=== PATIENT | male | born 1950 | race Caucasian/White ===

== ENCOUNTER → 2017-02-14 | Outpatient (CLI) | payer OTHER | LOC: M SMT 09:14 | PROVIDERS: ATTEND Nurse Practitioner Women's Health | DX: N40.1 Benign prostatic hyperplasia with lower urinary tract symptoms (principal) ==

== ENCOUNTER → 2018-09-16 | Outpatient (REF) | payer OTHER ==
[2018-09-16 12:37] LABS: BASO # 0.1 10^3/uL (0.0-0.2); BASO % 0.8 % (0.0-1.0); EOS # 0.5 10^3/uL (0.0-0.50); EOS % 4.6 % (0.0-3.0); HEMATOCRIT 38.1 % (42.0-52.0); HEMOGLOBIN 12.7 g/dl (13.5-17.5); LYMPH # 3.8 10^3/uL (1.5-4.5); LYMPH % 37.2 % (24.0-44.0); MEAN CORPUSCULAR HEMOGLOBIN 28.8 pg (27.0-33.0); MEAN CORPUSCULAR HGB CONC 33.3 g/dl (32.0-36.5); MEAN CORPUSCULAR VOLUME 86.4 fl (80.0-96.0); MONO # 0.8 10^3/uL (0.0-0.8); MONO % 7.9 % (0.0-5.0); NEUTROPHILS % 49.2 % (36.0-66.0); PLATELET COUNT, AUTOMATED 304 10^3/uL (150-450); RED BLOOD COUNT 4.41 10^6/uL (4.30-6.10); WHITE BLOOD COUNT 10.2 10^3/uL (4.0-10.0)
[2018-09-16 13:40] LABS: ALBUMIN 4.3 GM/DL (3.2-5.2); BILIRUBIN,TOTAL 0.7 MG/DL (0.2-1.0); CALCIUM LEVEL 9.1 MG/DL (8.8-10.2); CHOLESTEROL RISK RATIO 6.384 (<5); CREATININE FOR GFR 1.43 MG/DL (0.70-1.30); FREE T4 0.94 NG/DL (0.76-1.46); GLOMERULAR FILTRATION RATE 52.2 (>49); POTASSIUM SERUM 4.6 MEQ/L (3.5-5.1); THYROID STIMULATING HORMONE 3.03 uIU/ML (0.358-3.740); TOTAL 25(OH) VITAMIN D 27.8 NG/ML (30.0-100.0); TOTAL PROTEIN 7.3 GM/DL (6.4-8.2)
[2018-09-16 13:42] LABS: HEMOGLOBIN A1c 7.4 %
== END ==
LOC: M SFHCADAM 10:21
PROVIDERS: ATTEND Physician Assistant Medical
DX: E11.9 Type 2 diabetes mellitus without complications (principal); E66.01 Morbid (severe) obesity due to excess calories; I10 Essential (primary) hypertension

== ENCOUNTER → 2018-10-14 | Outpatient (REF) | payer OTHER ==
[2018-10-14 12:34] LABS: HEMATOCRIT 39.8 % (42.0-52.0); HEMOGLOBIN 13.5 g/dl (13.5-17.5); MEAN CORPUSCULAR HEMOGLOBIN 28.9 pg (27.0-33.0); MEAN CORPUSCULAR HGB CONC 33.9 g/dl (32.0-36.5); MEAN CORPUSCULAR VOLUME 85.2 fl (80.0-96.0); PLATELET COUNT, AUTOMATED 327 10^3/uL (150-450); RED BLOOD COUNT 4.67 10^6/uL (4.30-6.10); WHITE BLOOD COUNT 10.7 10^3/uL (4.0-10.0)
[2018-10-14 12:45] LABS: FERRITIN 126 NG/ML (26-388); IRON (FE) 85 UG/DL (65-175); PERCENT SATURATION 26.2 % (19.7-50.0); TOTAL IRON BINDING CAPACITY 325 UG/DL (250-450)
[2018-10-14 12:50] LABS: VITAMIN B12 LEVEL 446 PG/ML
[2018-10-14 12:51] LABS: FOLATE > 24.0 NG/ML
== END ==
LOC: M SFHCADAM 08:18
PROVIDERS: ATTEND Physician Assistant Medical
DX: D64.9 Anemia, unspecified (principal)

== ENCOUNTER → 2018-11-04 | Outpatient (REF) | payer OTHER ==
[2018-11-04 13:10] LABS: CALCIUM LEVEL 8.8 MG/DL (8.8-10.2); CREATININE FOR GFR 1.4 MG/DL (0.70-1.30); GLOMERULAR FILTRATION RATE 53.5 (>49); POTASSIUM SERUM 4.4 MEQ/L (3.5-5.1)
== END ==
LOC: M SFHCADAM 09:00
PROVIDERS: ATTEND Physician Assistant Medical
DX: R60.1 Generalized edema (principal)

== ENCOUNTER → 2018-12-23 | Outpatient (CLI) | payer OTHER ==
--- NOTE | 2018-12-23 12:35 | REP ---
One ultrasound for epididymal cyst and varicocele: There are no comparisons. The right testis is normal size measuring 5.4 x 2.4-0.6 cm. The left testis is normal size measuring 5.4 x 2.1 x 3.4 cm. There are no solid testicular masses. There is a left testicular cyst in the mediastinum testis measuring 4 x 4 x 2 mm. There is a left epididymal head cyst measuring 6 x 6 mm. The right epididymal head measures 11 mm and the left epididymal head measures 14 mm. There is vascular flow in both testes. The Doppler resistive index of the parenchymal arteries on the right is 0.58 and left 0.68. There are prominent veins inferiorly in the left jackie scrotum measuring up to 4 mm in transverse diameter. However, there is no significant diameter increase with Valsalva. Impression: There is a 6 x 6 mm left epididymal head cyst. There is a 4 x 2 x 4 mm right testicular cyst near the mediastinum testis. There are prominent the veins inferiorly in the left jackie scrotum measuring up to 4 mm in diameter compatible with varicocele, however, they are not significantly increased in diameter with Valsalva. Electronically Signed by Silverio Pope MD 12/23/2018 12:26 P
== END ==
LOC: M RAD 11:22
PROVIDERS: ATTEND Nurse Practitioner Women's Health
DX: N50.3 Cyst of epididymis (principal); N44.2 Benign cyst of testis

== ENCOUNTER → 2018-12-23 | Outpatient (CLI) | payer OTHER ==
[2018-12-25 14:24] LABS: PSA % FREE 21.8 % (.); PSA FREE 0.87 ng/mL
== END ==
LOC: M SMT 12:05
PROVIDERS: ATTEND Urology
DX: R97.20 Elevated prostate specific antigen [PSA] (principal); I86.1 Scrotal varices

== ENCOUNTER → 2019-04-08 | Outpatient (CLI) | payer OTHER ==
[2019-04-08 13:28] LABS: BASO # 0.1 10^3/uL (0.0-0.2); BASO % 0.9 % (0.0-1.0); EOS # 0.4 10^3/uL (0.0-0.5); EOS % 3.8 % (0.0-3.0); HEMATOCRIT 39.5 % (42.0-52.0); HEMOGLOBIN 13.3 g/dl (13.5-17.5); LYMPH # 3.7 10^3/uL (1.5-5.0); LYMPH % 34.9 % (24.0-44.0); MEAN CORPUSCULAR HEMOGLOBIN 29.6 pg (27.0-33.0); MEAN CORPUSCULAR HGB CONC 33.7 g/dl (32.0-36.5); MONO # 0.8 10^3/uL (0.0-0.8); MONO % 7.3 % (0.0-5.0); NEUTROPHILS # 5.6 10^3/uL (1.5-8.5); NEUTROPHILS % 52.8 % (36.0-66.0); PLATELET COUNT, AUTOMATED 333 10^3/uL (150-450); RED BLOOD COUNT 4.49 10^6/uL (4.30-6.10); WHITE BLOOD COUNT 10.6 10^3/uL (4.0-10.0)
[2019-04-08 13:59] LABS: ALBUMIN 3.9 GM/DL (3.2-5.2); BILIRUBIN,TOTAL 0.6 MG/DL (0.2-1.0); CALCIUM LEVEL 9.6 MG/DL (8.8-10.2); CHOLESTEROL RISK RATIO 4.058 (<5); CREATININE FOR GFR 1.39 MG/DL (0.70-1.30); GLOMERULAR FILTRATION RATE 53.9 (>49); POTASSIUM SERUM 4.2 MEQ/L (3.5-5.1); TOTAL PROTEIN 7.1 GM/DL (6.4-8.2)
[2019-04-08 14:14] LABS: HEMOGLOBIN A1c 6.8 %
[2019-04-08 14:22] LABS: CREATININE, URINE 60.5 MG/DL; MAU/CREAT RATIO 543.8 MCG/MG (0.0-30.0)
== END ==
LOC: M SMT 09:18
PROVIDERS: ATTEND Physician Assistant Medical
DX: E66.01 Morbid (severe) obesity due to excess calories (principal); I10 Essential (primary) hypertension; E11.9 Type 2 diabetes mellitus without complications

== ENCOUNTER → 2019-10-12 | Outpatient (REF) | payer OTHER ==
[2019-10-12 13:09] LABS: BASO # 0.1 10^3/uL (0.0-0.2); BASO % 0.6 % (0.0-1.0); EOS # 0.3 10^3/uL (0.0-0.5); EOS % 2.5 % (0.0-3.0); HEMATOCRIT 38.9 % (42.0-52.0); LYMPH # 4.3 10^3/uL (1.5-5.0); LYMPH % 34.1 % (24.0-44.0); MEAN CORPUSCULAR HEMOGLOBIN 28.8 pg (27.0-33.0); MEAN CORPUSCULAR HGB CONC 33.4 g/dl (32.0-36.5); MEAN CORPUSCULAR VOLUME 86.3 fl (80.0-96.0); MONO % 8.1 % (0.0-5.0); NEUTROPHILS # 6.9 10^3/uL (1.5-8.5); NEUTROPHILS % 54.2 % (36.0-66.0); PLATELET COUNT, AUTOMATED 331 10^3/uL (150-450); RED BLOOD COUNT 4.51 10^6/uL (4.30-6.10); WHITE BLOOD COUNT 12.7 10^3/uL (4.0-10.0)
[2019-10-12 13:25] LABS: HEMOGLOBIN A1c 7.8 %
[2019-10-12 13:31] LABS: BILIRUBIN,TOTAL 0.6 MG/DL (0.2-1.0); CALCIUM LEVEL 9.5 MG/DL (8.8-10.2); CHOLESTEROL RISK RATIO 4.428 (<5); CREATININE FOR GFR 1.55 MG/DL (0.70-1.30); GLOMERULAR FILTRATION RATE 47.4 (>42); POTASSIUM SERUM 4.2 MEQ/L (3.5-5.1); TOTAL PROTEIN 7.4 GM/DL (6.4-8.2)
[2019-10-12 13:32] LABS: MAU/CREAT RATIO 255.1 MCG/MG (0.0-30.0)
== END ==
LOC: M SFHCADAM 09:00
PROVIDERS: ATTEND Physician Assistant Medical
DX: R80.9 Proteinuria, unspecified (principal); I10 Essential (primary) hypertension; I87.2 Venous insufficiency (chronic) (peripheral); E78.1 Pure hyperglyceridemia; E78.6 Lipoprotein deficiency

== ENCOUNTER → 2019-12-14 | Outpatient (CLI) | payer OTHER ==
--- NOTE | 2019-12-14 15:05 | REP ---
Clinical: Chronic medical renal disease. Technique: Real time mcmanus scale and color evaluation using curved array transducer. Findings: The bilateral kidneys are normal in contour, size, and reniform shape without hydronephrosis, nephrolithiasis or obvious cystic abnormality. No perinephric fluid collection. Right kidney measures 11.9 x 6.7 x 5.7 cm and there is suggestion for a mid pole mass versus prominent column of Riki measuring 2.9 x 2.0 x 2.8 cm. Left kidney measures 12.1 x 7.7 x 6.1 cm and there is suggestion for a mid pole mass versus prominent column of Riki measuring 3.6 x 2.4 x 2.6 cm. The bladder is unremarkable and bilateral ureteral jets are identified. The prostate gland is enlarged and heterogeneous measuring 5.3 x 6.3 x 6.2 cm. Impression: 1. Kidneys most suggesting bilateral column of Riki and less likely mid pole mass lesions. No hydronephrosis. 2. Prostatomegaly. Electronically Signed by Michael Mak MD 12/14/2019 02:56 P
== END ==
LOC: M RAD 14:15
PROVIDERS: ATTEND Physician Assistant Medical
DX: N18.3 Chronic kidney disease, stage 3 (moderate) (principal); R80.9 Proteinuria, unspecified; N40.0 Benign prostatic hyperplasia without lower urinary tract symptoms

== ENCOUNTER → 2019-12-28 | Outpatient (CLI) | payer OTHER | LOC: M PLALAB 10:31 | PROVIDERS: ATTEND Nurse Practitioner Women's Health | DX: R97.20 Elevated prostate specific antigen [PSA] (principal) ==

== ENCOUNTER → 2020-02-01 | Outpatient (REF) | payer OTHER ==
[~2020-02-01] MED LIST: AMLO1TAB24; BREO1INH; CIDA500T2 PO; D31000TA2 PO; ECOT81TA5 PO; FINA5TAB2; FLAX1CAP5 PO; FURO40TA2; GLIM2TAB29; KP F1200 PO; METO1TAB7; MULTCAP PO; OLME1TAB47; ROSU5TAB5; SITA50TAB; TAMS1CAP17; VENTAER
[2020-03-20 17:02] LABS: HEMOGLOBIN A1c 7.2 %
== END ==
LOC: M LAB REF 17:32
PROVIDERS: ATTEND Internal Medicine Nephrology
DX: E11.22 Type 2 diabetes mellitus with diabetic chronic kidney disease (principal); N18.3 Chronic kidney disease, stage 3 (moderate)

== ENCOUNTER → 2020-02-28 | Outpatient (CLI) | payer OTHER | LOC: M LABSMTC 08:27 | PROVIDERS: ATTEND Anesthesiology | DX: Z01.812 Encounter for preprocedural laboratory examination (principal); Z20.828 Contact with and (suspected) exposure to other viral communicable diseases ==

== ENCOUNTER 2020-03-04 06:48 | Day surgery (SDC) | payer OTHER ==
[~2020-03-04] VITALS: Ht 170.2 cm; Wt 99.3 kg
[2020-03-04] MEDS ORDERED: NS 1,000 ML IV ONE (07:00)
[2020-03-04] MEDS ORDERED: propofoL 200 MG/20 ML VIAL As Ordered ONE ×2 (07:19→08:23)
[2020-03-04] MEDS ORDERED: LIDOCAINE 2% 100MG/5ML SDV (FOR ANES.) As Ordered ONE (07:19)
[2020-03-04] MEDS ORDERED: METOPROLOL 5 MG/5 ML VIAL As Ordered ONE (08:13)
[2020-03-04 09:04] VITALS: BP 191/88
--- NOTE | 2020-03-09 11:37 | ROOR ---
Patient Name: Javier Fraser Procedure Date: 03/04/2020 8:10 AM Date of : 1950 Age: 69 Room: [facility] Gender: Male Note Status: Finalized Procedure: Colonoscopy Indications: High risk colon cancer surveillance: Personal history of colonic polyps, Last colonoscopy: August 2014 Providers: Javier NIETO MD Referring MD: ADEN Magaña Requesting Provider: Medicines: Monitored Anesthesia Care Complications: No immediate complications. Procedure: Pre-Anesthesia Assessment: - The heart rate, respiratory rate, oxygen saturations, blood pressure, adequacy of pulmonary ventilation, and response to care were monitored throughout the procedure. The Colonoscope was introduced through the anus and advanced to the cecum, identified by appendiceal orifice and ileocecal valve. The colonoscopy was performed without difficulty. The patient tolerated the procedure well. The quality of the bowel preparation was good. Findings: The perianal and digital rectal examinations were normal. Three sessile polyps were found in the sigmoid colon. The polyps were 3 to 8 mm in size. These polyps were removed with a cold snare. Resection and retrieval were complete. To prevent bleeding after the polypectomy, two hemostatic clips were successfully placed. Mild sigmoid diverticulosis and small internal hemorrhoids. The exam was otherwise without abnormality on direct and retroflexion views. Impression: - Three 3 to 8 mm polyps in the sigmoid colon, removed with a cold snare. Resected and retrieved. Clips were placed. - Mild sigmoid diverticulosis and small internal hemorrhoids. - The examination was otherwise normal on direct and retroflexion views. Recommendation: - Repeat colonoscopy in 5 years for surveillance. Javier Nieto MD Javier NIETO MD 03/04/2020 8:38:42 AM Electronically signed by Javier NIETO MD Number of Addenda: 0 Note Initiated On: 03/04/2020 8:10 AM Estimated Blood Loss: Estimated blood loss: none.
== END 2020-03-04 09:10 | disposition home or self-care (01) ==
LOC: M OPP 06:48
PROVIDERS: ATTEND Internal Medicine Gastroenterology
DX: Z12.11 Encounter for screening for malignant neoplasm of colon (principal); Z86.010 Personal history of colon polyps; D12.5 Benign neoplasm of sigmoid colon; K57.30 Diverticulosis of large intestine without perforation or abscess without bleeding; K64.8 Other hemorrhoids; E11.9 Type 2 diabetes mellitus without complications; I10 Essential (primary) hypertension; Z79.82 Long term (current) use of aspirin; Z79.84 Long term (current) use of oral hypoglycemic drugs; Z79.899 Other long term (current) drug therapy; Z88.8 Allergy status to other drugs, medicaments and biological substances

== ENCOUNTER → 2020-03-31 | Outpatient (REF) | payer OTHER ==
[2020-03-31 13:08] LABS: BASO # 0.1 10^3/uL (0.0-0.2); BASO % 0.8 % (0.0-1.0); EOS # 0.3 10^3/uL (0.0-0.5); EOS % 3.2 % (0.0-3.0); HEMATOCRIT 36.7 % (42.0-52.0); HEMOGLOBIN 12.4 g/dl (13.5-17.5); LYMPH # 3.7 10^3/uL (1.5-5.0); LYMPH % 35.7 % (24.0-44.0); MEAN CORPUSCULAR HEMOGLOBIN 29.3 pg (27.0-33.0); MEAN CORPUSCULAR HGB CONC 33.8 g/dl (32.0-36.5); MEAN CORPUSCULAR VOLUME 86.8 fl (80.0-96.0); MONO # 0.7 10^3/uL (0.0-0.8); MONO % 7.1 % (0.0-5.0); NEUTROPHILS # 5.5 10^3/uL (1.5-8.5); NEUTROPHILS % 52.9 % (36.0-66.0); PLATELET COUNT, AUTOMATED 314 10^3/uL (150-450); RED BLOOD COUNT 4.23 10^6/uL (4.30-6.10); WHITE BLOOD COUNT 10.3 10^3/uL (4.0-10.0)
[2020-03-31 13:25] LABS: HEMOGLOBIN A1c 7.1 %
[2020-03-31 13:50] LABS: ALBUMIN 3.8 GM/DL (3.2-5.2); BILIRUBIN,TOTAL 0.6 MG/DL (0.2-1.0); CALCIUM LEVEL 9.4 MG/DL (8.8-10.2); CHOLESTEROL RISK RATIO 4.531 (<5); CREATININE FOR GFR 1.56 MG/DL (0.70-1.30); GLOMERULAR FILTRATION RATE 47.1 (>42); THYROID STIMULATING HORMONE 3.29 uIU/ML (0.358-3.740); TOTAL PROTEIN 7.2 GM/DL (6.4-8.2)
== END ==
LOC: M SFHCADAM 11:01
PROVIDERS: ATTEND Physician Assistant Medical
DX: E11.9 Type 2 diabetes mellitus without complications (principal); E66.01 Morbid (severe) obesity due to excess calories; I12.9 Hypertensive chronic kidney disease with stage 1 through stage 4 chronic kidney disease, or unspecified chronic kidney disease; E78.1 Pure hyperglyceridemia; N18.30 Chronic kidney disease, stage 3 unspecified

== ENCOUNTER → 2020-06-01 | Outpatient (CLI) | payer OTHER ==
[~2020-06-01] MED LIST changes: -OLME1TAB47; +OLME1TAB53
--- NOTE | 2020-06-01 09:03 | REP ---
INDICATION: NEOPLASM OF LEFT KIDNEY. COMPARISON: Comparison sonography December 14, 2019.. TECHNIQUE: Urinary tract sonography. FINDINGS: Moderate prostate enlargement is noted at scanning images at the bladder base. Prostate dimensions by transabdominal scanning are 6.5 x 6.5 x 7.1 cm. This correlates with the calculated glandular volume of 157 mL. Bladder pacheco are smooth.. Renal cortical echogenicity pattern is normal bilaterally and contours are smooth. There is no evidence of hydronephrosis, cyst, mass, or calculus in either kidney. The right kidney measures 11.9 x 6.9 x 5.3 cm. Left renal dimensions are 12.9 x 5.8 x 5.8 cm. There is a dromedary hump configuration of the left kidney unchanged from prior study. IMPRESSION: Enlarged prostate, otherwise negative urinary tract sonography.. Dromedary hump visible left kidney unchanged. No mass or cyst is felt to be present. <Electronically signed by Jonnie Dangelo > 06/01/20 [id number]
== END ==
LOC: M RAD 08:14
PROVIDERS: ATTEND Internal Medicine Nephrology
DX: D41.02 Neoplasm of uncertain behavior of left kidney (principal); N40.0 Benign prostatic hyperplasia without lower urinary tract symptoms

== ENCOUNTER → 2020-10-17 | Outpatient (CLI) | payer OTHER ==
[2020-10-17 11:03] LABS: BASO # 0.1 10^3/uL (0.0-0.2); BASO % 0.9 % (0.0-1.0); EOS # 0.5 10^3/uL (0.0-0.5); EOS % 3.9 % (0.0-3.0); HEMATOCRIT 42.2 % (42.0-52.0); HEMOGLOBIN 14.2 g/dl (13.5-17.5); LYMPH # 3.7 10^3/uL (1.5-5.0); LYMPH % 31.4 % (24.0-44.0); MEAN CORPUSCULAR HEMOGLOBIN 28.6 pg (27.0-33.0); MEAN CORPUSCULAR HGB CONC 33.6 g/dl (32.0-36.5); MEAN CORPUSCULAR VOLUME 85.1 fl (80.0-96.0); MONO # 0.7 10^3/uL (0.0-0.8); MONO % 6.4 % (2.0-8.0); NEUTROPHILS # 6.6 10^3/uL (1.5-8.5); NEUTROPHILS % 56.9 % (36.0-66.0); PLATELET COUNT, AUTOMATED 301 10^3/uL (150-450); RED BLOOD COUNT 4.96 10^6/uL (4.30-6.10); WHITE BLOOD COUNT 11.6 10^3/uL (4.0-10.0)
[2020-10-17 11:38] LABS: ALBUMIN 3.9 GM/DL (3.2-5.2); BILIRUBIN,TOTAL 0.6 MG/DL (0.2-1.0); CHOLESTEROL RISK RATIO 4.545 (<5); CREATININE FOR GFR 1.97 MG/DL (0.70-1.30); GLOMERULAR FILTRATION RATE 35.9 (>42); POTASSIUM SERUM 4.8 MEQ/L (3.5-5.1); THYROID STIMULATING HORMONE 2.24 uIU/ML (0.358-3.740); TOTAL PROTEIN 7.6 GM/DL (6.4-8.2)
[2020-10-17 14:01] LABS: CREATININE, URINE 28.3 MG/DL; MAU/CREAT RATIO 826.8 MCG/MG (0.0-30.0)
[2020-10-17 15:48] LABS: HEMOGLOBIN A1c 9.5 %
== END ==
LOC: M LAB 09:51
PROVIDERS: ATTEND Physician Assistant Medical
DX: E11.9 Type 2 diabetes mellitus without complications (principal)

== ENCOUNTER → 2021-01-05 | Outpatient (REF) | payer OTHER | LOC: M SFHCADAM 08:51 | PROVIDERS: ATTEND Nurse Practitioner Women's Health | DX: R97.20 Elevated prostate specific antigen [PSA] (principal) ==

== ENCOUNTER → 2021-04-03 | Outpatient (REF) | payer OTHER ==
[2021-04-03 13:30] LABS: BASO # 0.1 10^3/uL (0.0-0.2); BASO % 0.8 % (0.0-1.0); EOS # 0.3 10^3/uL (0.0-0.5); EOS % 2.6 % (0.0-3.0); HEMOGLOBIN 15.6 g/dl (13.5-17.5); LYMPH # 4.1 10^3/uL (1.5-5.0); LYMPH % 33.1 % (24.0-44.0); MEAN CORPUSCULAR HEMOGLOBIN 29.2 pg (27.0-33.0); MEAN CORPUSCULAR HGB CONC 33.2 g/dl (32.0-36.5); MONO # 0.8 10^3/uL (0.0-0.8); MONO % 6.3 % (2.0-8.0); NEUTROPHILS # 7.1 10^3/uL (1.5-8.5); NEUTROPHILS % 56.8 % (36.0-66.0); PLATELET COUNT, AUTOMATED 327 10^3/uL (150-450); RED BLOOD COUNT 5.34 10^6/uL (4.30-6.10); WHITE BLOOD COUNT 12.5 10^3/uL (4.0-10.0)
[2021-04-03 13:52] LABS: ALBUMIN 3.8 GM/DL (3.2-5.2); BILIRUBIN,TOTAL 0.6 MG/DL (0.2-1.0); CALCIUM LEVEL 9.6 MG/DL (8.8-10.2); CHOLESTEROL RISK RATIO 5.285 (<5); CREATININE FOR GFR 2.05 MG/DL (0.70-1.30); GLOMERULAR FILTRATION RATE 34.2 (>42); POTASSIUM SERUM 4.8 MEQ/L (3.5-5.1); TOTAL PROTEIN 7.4 GM/DL (6.4-8.2)
[2021-04-03 14:07] LABS: HEMOGLOBIN A1c 6.9 %
== END ==
LOC: M SFHCADAM 08:01
PROVIDERS: ATTEND Physician Assistant Medical
DX: E11.22 Type 2 diabetes mellitus with diabetic chronic kidney disease (principal); E66.01 Morbid (severe) obesity due to excess calories; I12.9 Hypertensive chronic kidney disease with stage 1 through stage 4 chronic kidney disease, or unspecified chronic kidney disease; K75.81 Nonalcoholic steatohepatitis (NASH); I87.2 Venous insufficiency (chronic) (peripheral); G47.33 Obstructive sleep apnea (adult) (pediatric); N18.31 Chronic kidney disease, stage 3a; E11.8 Type 2 diabetes mellitus with unspecified complications

== ENCOUNTER → 2021-09-28 | Outpatient (REF) | payer OTHER ==
[~2021-09-28] MED LIST changes: -D31000TA2 PO; +VITA100093 PO
[2021-09-28 14:27] LABS: BASO # 0.1 10^3/uL (0.0-0.2); BASO % 0.8 % (0.0-1.0); EOS # 0.3 10^3/uL (0.0-0.5); EOS % 2.6 % (0.0-3.0); HEMATOCRIT 43.7 % (42.0-52.0); HEMOGLOBIN 15.1 g/dl (13.5-17.5); LYMPH # 4.5 10^3/uL (1.5-5.0); LYMPH % 39.3 % (24.0-44.0); MEAN CORPUSCULAR HEMOGLOBIN 30.4 pg (27.0-33.0); MEAN CORPUSCULAR HGB CONC 34.6 g/dl (32.0-36.5); MEAN CORPUSCULAR VOLUME 88.1 fl (80.0-96.0); MONO # 0.8 10^3/uL (0.0-0.8); MONO % 6.9 % (2.0-8.0); NEUTROPHILS # 5.8 10^3/uL (1.5-8.5); PLATELET COUNT, AUTOMATED 344 10^3/uL (150-450); RED BLOOD COUNT 4.96 10^6/uL (4.30-6.10); WHITE BLOOD COUNT 11.5 10^3/uL (4.0-10.0)
[2021-09-28 16:23] LABS: BILIRUBIN,TOTAL 0.6 MG/DL (0.2-1.0); CALCIUM LEVEL 9.6 MG/DL (8.8-10.2); CHOLESTEROL RISK RATIO 5.178 (<5); CREATININE FOR GFR 2.07 MG/DL (0.70-1.30); GLOMERULAR FILTRATION RATE 33.8 (>42); THYROID STIMULATING HORMONE 2.46 uIU/ML (0.358-3.740); TOTAL PROTEIN 7.5 GM/DL (6.4-8.2)
[2021-09-28 16:43] LABS: CREATININE, URINE 90.2 MG/DL; MAU/CREAT RATIO 200.6 MCG/MG (0.0-30.0)
[2021-09-28 17:38] LABS: HEMOGLOBIN A1c 8.3 %
== END ==
LOC: M SFHCPLAZ 08:22
PROVIDERS: ATTEND Physician Assistant Medical
DX: E11.8 Type 2 diabetes mellitus with unspecified complications (principal); E66.01 Morbid (severe) obesity due to excess calories; R80.9 Proteinuria, unspecified; E78.1 Pure hyperglyceridemia

== ENCOUNTER → 2022-01-29 | Outpatient (REF) | payer OTHER | LOC: M SFHCADAM 11:17 | PROVIDERS: ATTEND Nurse Practitioner Women's Health | DX: R97.20 Elevated prostate specific antigen [PSA] (principal) ==

== ENCOUNTER → 2022-05-01 | Outpatient (REF) | payer OTHER ==
[2022-05-01 14:06] LABS: CREATININE FOR GFR 1.92 MG/DL (0.70-1.30); GLOMERULAR FILTRATION RATE 36.8 (>42); POTASSIUM SERUM 5.4 MEQ/L (3.5-5.1)
[2022-05-01 14:07] LABS: ALBUMIN 3.9 GM/DL (3.2-5.2); BILIRUBIN,TOTAL 0.5 MG/DL (0.2-1.0); CALCIUM LEVEL 9.9 MG/DL (8.8-10.2); CHOLESTEROL RISK RATIO 5.433 (<5); THYROID STIMULATING HORMONE 2.99 uIU/ML (0.358-3.740); TOTAL PROTEIN 7.4 GM/DL (6.4-8.2)
[2022-05-01 14:14] LABS: HEMOGLOBIN A1c 8.9 %
== END ==
LOC: M SFHCADAM 08:03
PROVIDERS: ATTEND Physician Assistant Medical
DX: E11.8 Type 2 diabetes mellitus with unspecified complications (principal); E78.1 Pure hyperglyceridemia

== ENCOUNTER → 2022-10-30 | Outpatient (REF) | payer OTHER ==
[2022-10-30 13:01] LABS: BASO # 0.1 10^3/uL (0.0-0.2); BASO % 0.9 % (0.0-1.0); EOS # 0.3 10^3/uL (0.0-0.5); EOS % 2.5 % (0.0-3.0); HEMATOCRIT 43.2 % (42.0-52.0); HEMOGLOBIN 14.5 g/dl (13.5-17.5); LYMPH # 3.8 10^3/uL (1.5-5.0); LYMPH % 31.5 % (24.0-44.0); MEAN CORPUSCULAR HGB CONC 33.6 g/dl (32.0-36.5); MEAN CORPUSCULAR VOLUME 89.4 fl (80.0-96.0); MONO # 0.8 10^3/uL (0.0-0.8); MONO % 6.3 % (2.0-8.0); NEUTROPHILS % 58.5 % (36.0-66.0); PLATELET COUNT, AUTOMATED 308 10^3/uL (150-450); RED BLOOD COUNT 4.83 10^6/uL (4.30-6.10)
[2022-10-30 13:03] LABS: BILIRUBIN,TOTAL 0.6 MG/DL (0.3-1.2); CALCIUM LEVEL 9.8 MG/DL (8.3-10.6); CHOLESTEROL RISK RATIO 4.66 (<5); CREATININE FOR GFR 1.56 MG/DL (0.70-1.30); GLOMERULAR FILTRATION RATE 46.7 (>42); LDL CHOLESTEROL 60.4 MG/DL (<100); TOTAL PROTEIN 7.4 G/DL (5.7-8.2)
[2022-10-30 13:04] LABS: THYROID STIMULATING HORMONE 2.964 uIU/ML (0.55-4.78); TOTAL 25(OH) VITAMIN D 43.5 NG/ML (20.0-100.0)
== END ==
LOC: M SFHCADAM 09:01
PROVIDERS: ATTEND Physician Assistant Medical
DX: E11.22 Type 2 diabetes mellitus with diabetic chronic kidney disease (principal); E11.65 Type 2 diabetes mellitus with hyperglycemia

== ENCOUNTER → 2022-11-07 | Outpatient (REF) | payer OTHER | LOC: M SFHCADAM 10:21 | PROVIDERS: ATTEND Physician Assistant Medical | DX: E11.22 Type 2 diabetes mellitus with diabetic chronic kidney disease (principal); E11.65 Type 2 diabetes mellitus with hyperglycemia; E66.01 Morbid (severe) obesity due to excess calories; I10 Essential (primary) hypertension; E78.1 Pure hyperglyceridemia ==

== ENCOUNTER → 2023-01-28 | Outpatient (REF) | payer OTHER | LOC: M SMT 15:48 | PROVIDERS: ATTEND Nurse Practitioner Women's Health | DX: R97.20 Elevated prostate specific antigen [PSA] (principal) ==

== ENCOUNTER → 2023-05-06 | Outpatient (REF) | payer OTHER ==
[2023-05-06 13:46] LABS: HEMOGLOBIN A1c 8.4 % (4.0-6.0)
[2023-05-06 13:47] LABS: CHOLESTEROL RISK RATIO 5.16 (<5); HDL CHOLESTEROL 30.2 MG/DL (>40); LDL CHOLESTEROL 64.8 MG/DL (<100); NON-HDL-C 125.8 MG/DL; THYROID STIMULATING HORMONE 3.672 uIU/ML (0.55-4.78); TOTAL 25(OH) VITAMIN D 29.8 NG/ML (20.0-100.0)
== END ==
LOC: M SFHCADAM 09:45
PROVIDERS: ATTEND Physician Assistant Medical
DX: I10 Essential (primary) hypertension (principal); E11.22 Type 2 diabetes mellitus with diabetic chronic kidney disease; E11.65 Type 2 diabetes mellitus with hyperglycemia; E66.01 Morbid (severe) obesity due to excess calories; E78.1 Pure hyperglyceridemia

== ENCOUNTER → 2023-11-04 | Outpatient (REF) | payer OTHER ==
[~2023-11-04] MED LIST changes: +ROSU5TAB40; -ROSU5TAB5
[2023-11-04 12:28] LABS: BASO # 0.1 10^3/uL (0.0-0.2); BASO % 0.9 % (0.0-1.0); EOS # 0.2 10^3/uL (0.0-0.5); EOS % 2.1 % (0.0-3.0); HEMOGLOBIN 14.8 g/dl (13.5-17.5); LYMPH # 4.1 10^3/uL (1.5-5.0); LYMPH % 35.5 % (24.0-44.0); MEAN CORPUSCULAR HEMOGLOBIN 30.6 pg (27.0-33.0); MEAN CORPUSCULAR HGB CONC 34.4 g/dl (32.0-36.5); MONO # 0.9 10^3/uL (0.0-0.8); MONO % 7.3 % (2.0-8.0); NEUTROPHILS # 6.3 10^3/uL (1.5-8.5); NEUTROPHILS % 53.9 % (36.0-66.0); PLATELET COUNT, AUTOMATED 317 10^3/uL (150-450); RED BLOOD COUNT 4.83 10^6/uL (4.30-6.10); WHITE BLOOD COUNT 11.6 10^3/uL (4.0-10.0)
[2023-11-04 12:32] LABS: BILIRUBIN,TOTAL 0.6 MG/DL (0.3-1.2); CALCIUM LEVEL 9.4 MG/DL (8.3-10.6); CHOLESTEROL RISK RATIO 4.66 (<5); CREATININE FOR GFR 2.19 MG/DL (0.70-1.30); GLOMERULAR FILTRATION RATE 31.5 (>42); HDL CHOLESTEROL 29.6 MG/DL (>40); LDL CHOLESTEROL 59.8 MG/DL (<100); NON-HDL-C 108.4 MG/DL; POTASSIUM SERUM 4.5 MMOL/L (3.5-5.1); TOTAL PROTEIN 6.9 G/DL (5.7-8.2)
[2023-11-04 12:34] LABS: THYROID STIMULATING HORMONE 3.114 uIU/ML (0.55-4.78)
[2023-11-04 13:27] LABS: MAU/CREAT RATIO 11.7 MCG/MG (0.0-30.0)
== END ==
LOC: M SFHCADAM 09:49
PROVIDERS: ATTEND Physician Assistant Medical
DX: E11.65 Type 2 diabetes mellitus with hyperglycemia (principal); E66.01 Morbid (severe) obesity due to excess calories; K75.81 Nonalcoholic steatohepatitis (NASH); E78.1 Pure hyperglyceridemia

== ENCOUNTER → 2024-02-06 | Outpatient (CLI) | payer MEDICARE ==
[~2024-02-06] MED LIST changes: -OLME1TAB53; +OLME1TAB54
== END ==
LOC: M PLALAB 09:13
PROVIDERS: ATTEND Physician Assistant
DX: R97.20 Elevated prostate specific antigen [PSA] (principal)

== ENCOUNTER → 2024-05-11 | Outpatient (REF) | payer MEDICARE ==
[~2024-05-11] MED LIST changes: -ROSU5TAB40; +ROSU5TAB49
[2024-05-11 13:18] LABS: BASO # 0.1 10^3/uL (0.0-0.2); BASO % 0.4 % (0.0-1.0); EOS # 0.4 10^3/uL (0.0-0.5); EOS % 3.3 % (0.0-3.0); HEMATOCRIT 39.8 % (42.0-52.0); HEMOGLOBIN 13.6 g/dl (13.5-17.5); LYMPH # 3.8 10^3/uL (1.5-5.0); LYMPH % 28.3 % (24.0-44.0); MEAN CORPUSCULAR HEMOGLOBIN 30.4 pg (27.0-33.0); MEAN CORPUSCULAR HGB CONC 34.2 g/dl (32.0-36.5); MONO # 0.9 10^3/uL (0.0-0.8); MONO % 6.8 % (2.0-8.0); NEUTROPHILS # 8.2 10^3/uL (1.5-8.5); NEUTROPHILS % 60.7 % (36.0-66.0); PLATELET COUNT, AUTOMATED 321 10^3/uL (150-450); RED BLOOD COUNT 4.47 10^6/uL (4.30-6.10); WHITE BLOOD COUNT 13.5 10^3/uL (4.0-10.0)
[2024-05-11 13:39] LABS: ALBUMIN 3.5 G/DL (3.2-5.2); BILIRUBIN,TOTAL 0.6 MG/DL (0.3-1.2); CHOLESTEROL RISK RATIO 4.26 (<5); CREATININE FOR GFR 1.5 MG/DL (0.70-1.30); GLOMERULAR FILTRATION RATE 48.7 (>42); HDL CHOLESTEROL 29.3 MG/DL (>40); LDL CHOLESTEROL 63.5 MG/DL (<100); NON-HDL-C 95.7 MG/DL; POTASSIUM SERUM 4.3 MMOL/L (3.5-5.1); TOTAL PROTEIN 6.7 G/DL (5.7-8.2)
[2024-05-11 13:41] LABS: THYROID STIMULATING HORMONE 3.128 uIU/ML (0.55-4.78)
[2024-05-11 13:53] LABS: HEMOGLOBIN A1c 7.8 % (4.0-6.0)
== END ==
LOC: M SFHCADAM 08:44
PROVIDERS: ATTEND Physician Assistant Medical
DX: I10 Essential (primary) hypertension (principal); E11.65 Type 2 diabetes mellitus with hyperglycemia; K75.81 Nonalcoholic steatohepatitis (NASH); E78.1 Pure hyperglyceridemia

== ENCOUNTER → 2025-02-17 | Outpatient (REF) | payer MEDICARE ==
[~2025-02-17] MED LIST changes: -OLME1TAB54; +OLME1TAB93
== END ==
LOC: M SFHCADAM 13:23
PROVIDERS: ATTEND Physician Assistant
DX: R97.20 Elevated prostate specific antigen [PSA] (principal)

== ENCOUNTER 2025-03-24 08:14 | Day surgery (SDC) | payer MEDICARE ==
[~2025-03-24] VITALS: Ht 170.2 cm; Wt 90.1 kg
[~2025-03-24 08:14] MED LIST changes: +ALLO100T PO; -AMLO1TAB24; +AMLO1TAB24 PO; +FARX1TAB3 PO; -FINA5TAB2; +FINA5TAB2 PO; -FURO40TA2; +FURO40TA2 PO; +GLIM4TAB5 PO; +JANU100T PO; -METO1TAB7; +METO1TAB7 PO; -ROSU5TAB49; +ROSU5TAB49 PO; +SPIR-10 PO; -TAMS1CAP17; +TAMS1CAP17 PO; +TOUJ300I2 SQ; +TRUL10IN
[2025-03-24] MEDS ORDERED: LIDOCAINE 2% 100 MG/5 ML SDV (FOR ANES.) As Ordered ONE (08:40)
[2025-03-24 09:47] VITALS: TEMP 96.6
[2025-03-24 10:01] VITALS: BP 125/58; O2SAT 98
== END 2025-03-24 10:14 | disposition home or self-care (01) ==
LOC: M OPP 08:14
PROVIDERS: ATTEND Surgery
DX: K64.0 First degree hemorrhoids (principal); Z86.0100 Personal history of colon polyps, unspecified; Z79.899 Other long term (current) drug therapy; Z79.82 Long term (current) use of aspirin; Z79.84 Long term (current) use of oral hypoglycemic drugs; Z79.4 Long term (current) use of insulin; Z79.85 Long-term (current) use of injectable non-insulin antidiabetic drugs